=== PATIENT | male | born 1955 | race Caucasian/White ===

== ENCOUNTER 2018-09-12 16:21 | Observation (INO) ==
[2018-09-12] MEDS ORDERED: Aspirin 325 MG Tablet PO ONE (16:24)
--- NOTE | 2018-09-12 16:34 | ED ---
HPI General Chief Complaint: Chest Pain Stated Complaint: chest pain Time Seen by Provider: 09/12/18 16:23 Source: patient, family and RN notes reviewed Mode of arrival: ambulatory Limitations: no limitations History of Present Illness HPI narrative: 63-year-old male states approximately 30 minutes ago he developed chest pain and tingling to his left arm. He states he has history of bypass surgery. He states that he came straight here. He denies any weakness, slurred speech, change in mentation or other concurrent complaints at this time. He states he took his meclizine given he felt a little off and that helped him some with that feeling but the pain and tingling persisted so he came in. MD complaint: Reports chest pain STEMI Alert: No Onset (ago): minute(s) Duration: constant Onset: during rest Pain location: Reports substernal Severity: moderate Quality: Reports tightness Pain radiation: Reports none Relieving factors: nothing Exacerbating factors: nothing Related Data Home Medications Medication Instructions Recorded Confirmed glipizide 10 mg PO BID 08/29/18 09/12/18 metformin 1,000 mg PO BID 08/29/18 09/12/18 alprazolam [Xanax] 0.5 mg PO BID 09/12/18 09/12/18 clonidine HCl 0.1 mg PO BID 09/12/18 09/12/18 insulin NPH and regular human 1 sliding scale dose SUBCUT UD 09/12/18 09/12/18 [Novolin 70/30 U-100 Insulin] insulin aspart U-100 [Novolog 1 sliding scale dose SUBCUT UD 09/12/18 09/12/18 U-100 Insulin aspart] lisinopril-hydrochlorothiazide 1 tab PO DAILY 09/12/18 09/12/18 Previous Rx's Medication Instructions Recorded methocarbamol [Robaxin-] 750 mg PO Q8H #20 tab 08/29/18 gjnqdhvjqq-npxkostewomvg-hnqk 1 cap PO Q4H PRN #10 cap 09/04/18 [Fioricet] pantoprazole 40 mg PO DAILY #10 tab 09/04/18 Allergies Allergy/AdvReac Type Severity Reaction Status Date / Time gabapentin Allergy "My Verified 09/04/18 17:38 Breathing" Review of Systems ROS: all other systems reviewed are negative [facility] Medical History Medical History Diabetes (Acute) Hypertension (Acute) Surgical History Surgical History Hx of CABG (Acute) Social History Social History Substance History: No History of Abuse Second Hand Smoke Exposure: No Smoking Status: Former smoker How Often Do You Have a Drink Containing Alcohol: Never Recent Travel in [facility] within the Last 8 Weeks: No Recent Out of Country Travel within the Last 8 Weeks: No Exam Narrative Exam Narrative: GENERAL: 63 y/o male in no apparent distress SKIN: Focused skin assessment warm/dry. HEAD: Atraumatic. Normocephalic. EYES: Pupils equal and round. No scleral icterus. No injection or drainage. ENT: No nasal bleeding or discharge. NECK: Trachea midline. CARDIOVASCULAR: Regular rate and rhythm. RESPIRATORY: No accessory muscle use. Clear to auscultation. Breath sounds equal bilaterally. GASTROINTESTINAL: Abdomen soft, non-tender, nondistended. MUSCULOSKELETAL: No obvious deformities. No clubbing. No cyanosis. NEUROLOGICAL: Awake and alert. No obvious cranial nerve deficits. Motor grossly within normal limits. Normal speech. 5 out of 5 in all 4 extremities, equal grasp bilaterally, no pronator drift, no facial droop PSYCHIATRIC: Appropriate mood and affect; insight and judgment normal. Course Reevaluation(s) Reevaluation #1: patient updated and agrees to [facility] admit Initial Documented Vital Signs Pulse Rate 93 H 09/12/18 16:23 Respiratory Rate 20 09/12/18 16:23 Blood Pressure 205/96 H 09/12/18 16:23 Pulse Oximetry 98 09/12/18 16:23 Last Documented Vital Signs Pulse Rate 93 H 09/12/18 16:23 Respiratory Rate 20 09/12/18 16:23 Blood Pressure 205/96 H 09/12/18 16:23 Pulse Oximetry 98 09/12/18 16:23 Medical Decision Making MDM Narrative Medical decision making narrative: We will check blood work, chest x-ray and dose with aspirin nitroglycerin and reevaluate Medical Screen Exam Complete: Yes Emergency Medical Condition: Yes Differential Diagnosis Differential Diagnosis: MD, gastritis, anxiety, musculoskeletal Lab Data Result diagrams: 09/12/18 17:40 09/12/18 17:40 Lab Results 09/12/18 09/12/18 09/12/18 Range/Units 16:32 17:40 17:40 WBC 5.5 (4.0-11.0) th/mm3 RBC 5.33 (4.50-5.90) mil/mm3 Hgb 15.8 (13.0-17.0) gm/dL Hct 46.7 (39.0-51.0) % MCV 87.6 (80.0-100.0) fL MCH 29.6 (27.0-34.0) pg MCHC 33.7 (32.0-36.0) % RDW 15.1 (11.6-17.2) % Plt Count 148 L (150-450) th/mm3 MPV 8.6 (7.0-11.0) fL Neut % (Auto) 64.1 (16.0-70.0) % Lymph % (Auto) 26.9 (9.0-44.0) % Haskell % (Auto) 6.2 (0.0-8.0) % Eos % (Auto) 2.2 (0.0-4.0) % Baso % (Auto) 0.6 (0.0-2.0) % Neut # (Auto) 3.5 (1.8-7.7) th/mm3 Lymph # (Auto) 1.5 (1.0-4.8) th/mm3 Haskell # (Auto) 0.3 (0.0-0.9) th/mm3 Eos # (Auto) 0.1 (0.0-0.4) th/mm3 Baso # (Auto) 0.0 (0.0-0.2) th/mm3 WBC Differential . Differential Comment Auto diff final PT 10.5 (9.8-11.6) sec INR 1.0 Ratio APTT 25.1 (23.4-31.7) sec Sodium (136-145) meq/L Potassium (3.5-5.1) meq/L Chloride (98-107) meq/L Carbon Dioxide (21.0-32.0) meq/L Anion Gap (5-15) meq/L BUN (7-18) mg/dL Creatinine (0.60-1.30) mg/dL Estimated GFR (>89) mL/min POC Glucose 323 H (68-110) mg/dl Random Glucose (74-106) mg/dL Calcium (8.5-10.1) mg/dL Magnesium (1.5-2.5) mg/dL Total Bilirubin (0.2-1.0) mg/dL AST (15-37) U/L ALT (12-78) U/L Alkaline Phosphatase (45-117) U/L Total Creatine Kinase (39-308) U/L Troponin I (0.02-0.05) ng/mL Total Protein (6.4-8.2) g/dL Albumin (3.4-5.0) g/dL Serum Alcohol (0-5) mg/dL 09/12/18 Range/Units 17:40 WBC (4.0-11.0) th/mm3 RBC (4.50-5.90) mil/mm3 Hgb (13.0-17.0) gm/dL Hct (39.0-51.0) % MCV (80.0-100.0) fL MCH (27.0-34.0) pg MCHC (32.0-36.0) % RDW (11.6-17.2) % Plt Count (150-450) th/mm3 MPV (7.0-11.0) fL Neut % (Auto) (16.0-70.0) % Lymph % (Auto) (9.0-44.0) % Haskell % (Auto) (0.0-8.0) % Eos % (Auto) (0.0-4.0) % Baso % (Auto) (0.0-2.0) % Neut # (Auto) (1.8-7.7) th/mm3 Lymph # (Auto) (1.0-4.8) th/mm3 Haskell # (Auto) (0.0-0.9) th/mm3 Eos # (Auto) (0.0-0.4) th/mm3 Baso # (Auto) (0.0-0.2) th/mm3 WBC Differential Differential Comment PT (9.8-11.6) sec INR Ratio APTT (23.4-31.7) sec Sodium 134 L (136-145) meq/L Potassium 5.1 (3.5-5.1) meq/L Chloride 104 (98-107) meq/L Carbon Dioxide 20.4 L (21.0-32.0) meq/L Anion Gap 10 (5-15) meq/L BUN 21 H (7-18) mg/dL Creatinine 1.30 (0.60-1.30) mg/dL Estimated GFR 56 L (>89) mL/min POC Glucose (68-110) mg/dl Random Glucose 326 H (74-106) mg/dL Calcium 8.4 L (8.5-10.1) mg/dL Magnesium 1.6 (1.5-2.5) mg/dL Total Bilirubin 0.2 (0.2-1.0) mg/dL AST 30 (15-37) U/L ALT 62 (12-78) U/L Alkaline Phosphatase 113 (45-117) U/L Total Creatine Kinase 53 (39-308) U/L Troponin I Less than 0.02 L (0.02-0.05) ng/mL Total Protein 8.0 (6.4-8.2) g/dL Albumin 3.9 (3.4-5.0) g/dL Serum Alcohol Less than 3 (0-5) mg/dL Imaging Data Radiologist's impression: Chest X-Ray 09/12/18 16:23 CONCLUSION: 1. No acute cardiopulmonary disease. Head CT 09/12/18 17:55 CONCLUSION: 1. No acute intracranial abnormality. . Discharge Plan Discharge Disposition Patient Disposition: ED Admit(ED Internal Use Only) Discharge Order Discharge Orders: ED Use Only Admit Order (Routine); Ordered 09/12/18 Ordered By: Mere Villar Discharge Details Diagnosis: Chest pain Physicians Team ED Provider: Mere Villar Primary Care Provider: Primary Care AlexisiSelene Rxs /Orders / Referrals /Forms Prescriptions: No Action glipizide 10 mg PO BID RF: 0 metformin 1,000 mg PO BID RF: 0 methocarbamol [Robaxin-750] 750 mg tablet 750 mg PO Q8H Qty: 20 RF: 0 pantoprazole 40 mg tablet,delayed release (DR/EC) 40 mg PO DAILY Qty: 10 RF: 0 zjimiouaeg-wqouqqpjyptvy-byuk [Fioricet] 50-300-40 mg capsule 1 cap PO Q4H PRN (Reason: pain) Qty: 10 RF: 0 clonidine HCl 0.1 mg Tablet 0.1 mg PO BID RF: 0 lisinopril-hydrochlorothiazide 20-12.5 mg Tablet 1 tab PO DAILY RF: 0 insulin NPH and regular human [Novolin 70/30 U-100 Insulin] 100 unit/mL (70-30 ) Suspension 1 sliding scale dose SUBCUT UD RF: 0 alprazolam [Xanax] 0.5 mg Tablet 0.5 mg PO BID RF: 0 insulin aspart U-100 [Novolog U-100 Insulin aspart] 100 unit/mL Solution 1 sliding scale dose SUBCUT UD RF: 0 Discharge Instructions Patient Printed Instructions: Chest Pain (ED) Status ED Status: Admitted Observation Patient
--- NOTE | 2018-09-12 17:14 | XR ---
EXAM DATE: 09/12/2018 5:12 PM EST AGE/SEX: 63 years / Male INDICATIONS: Chest pain CLINICAL DATA: This is the patient's initial encounter. Patient reports that signs and symptoms have been present for 1 day and indicates a pain score of 3/10. MEDICAL/SURGICAL HISTORY: . Diabetes. Hypertension. CABG. COMPARISON: No prior exams available for comparison. FINDINGS: A single AP view of the chest demonstrates the lungs to be symmetrically aerated without evidence of mass, infiltrate or effusion. Median sternotomy wires in place. The cardiomediastinal contours are u nremarkable. Osseous structures are intact. CONCLUSION: 1. No acute cardiopulmonary disease. Electronically signed by: Juanito Brown MD Board Certified Radiologist 09/12/2018 5:12 PM MIGUEL ANGEL T
[2018-09-12] MEDS ORDERED: ALPRAZolam 0.5 MG Tablet PO ONE (17:27)
[2018-09-12 17:52] LABS: Baso % (Auto) 0.6 % (0.0-2.0); Eos # (Auto) 0.1 th/mm3 (0.0-0.4); Eos % (Auto) 2.2 % (0.0-4.0); Hematocrit 46.7 % (39.0-51.0); Hemoglobin 15.8 gm/dL (13.0-17.0); Lymph # (Auto) 1.5 th/mm3 (1.0-4.8); Lymph % (Auto) 26.9 % (9.0-44.0); Mean Corpuscular HGB Conc 33.7 % (32.0-36.0); Mean Corpuscular Hemoglobin 29.6 pg (27.0-34.0); Mean Corpuscular Volume 87.6 fL (80.0-100.0); Mean Platelet Volume 8.6 fL (7.0-11.0); Mono # (Auto) 0.3 th/mm3 (0.0-0.9); Mono % (Auto) 6.2 % (0.0-8.0); Neut # (Auto) 3.5 th/mm3 (1.8-7.7); Neut % (Auto) 64.1 % (16.0-70.0); Platelet Count 148 th/mm3 (150-450); Red Blood Count 5.33 mil/mm3 (4.50-5.90); Red Cell Distribution Width 15.1 % (11.6-17.2); White Blood Count 5.5 th/mm3 (4.0-11.0)
[2018-09-12 18:07] LABS: Alanine Aminotransferase 62 U/L (12-78); Albumin 3.9 g/dL (3.4-5.0); Anion Gap 10 meq/L (5-15); Aspartate Aminotransferase 30 U/L (15-37); Blood Urea Nitrogen 21 mg/dL (7-18); Calcium 8.4 mg/dL (8.5-10.1); Carbon Dioxide 20.4 meq/L (21.0-32.0); Chloride 104 meq/L (98-107); Glomerular Filtration Rate 56 mL/min (>89); Glucose,Random 326 mg/dL (74-106); Magnesium 1.6 mg/dL (1.5-2.5); Potassium 5.1 meq/L (3.5-5.1); Sodium 134 meq/L (136-145)
[2018-09-12 18:11] LABS: Alkaline Phosphatase 113 U/L (45-117)
[2018-09-12 18:17] LABS: Activated Partial Thrombo Time 25.1 sec (23.4-31.7); Prothrombin Time 10.5 sec (9.8-11.6)
[2018-09-12 18:21] LABS: Creatine Kinase 53 U/L (39-308)
--- NOTE | 2018-09-12 18:50 | CT ---
EXAM DATE: 09/12/2018 6:42 PM EST AGE/SEX: 63 years / Male INDICATIONS: Headaches, left arm numbness and tingling CLINICAL DATA: This is the patient's initial encounter. Patient reports that signs and symptoms have been present for 1 day and indicates a pain score of 0/10. MEDICAL/SURGICAL HISTORY: Diabetes. Hypertension. CABG. RADIATION DOSE: 56.35 CTDI (mGy) COMPARISON: No prior exams available for comparison. TECHNIQUE: CT of the head without contrast. Using automated exposure control and adjustment of the mA and/or kV according to patient size, radiation dose was kept as low as reasonably achievable to ob tain optimal diagnostic quality images. DICOM format image data is available electronically for revi ew and comparison. FINDINGS: Cerebrum: The ventricles are normal for age. Mild periventricular white matter hypodensities. No cristina dence of midline shift, mass lesion, hemorrhage or acute infarction. No extraaxial fluid collections are seen. Posterior Fossa: The cerebellum and brainstem are intact. The 4th ventricle is midline. The cerebe llopontine angle is unremarkable. Extracranial: The visualized portion of the orbits is intact. Skull: The calvaria is intact. No evidence of skull fracture. CONCLUSION: 1. No acute intracranial abnormality. . Electronically signed by: Juanito Brown MD Board Certified Radiologist 09/12/2018 6:49 PM MIGUEL ANGEL Barth
[2018-09-12 21:10] LABS: Creatine Kinase 45 U/L (39-308)
[2018-09-12 23:09] LABS: Creatine Kinase 42 U/L (39-308)
[2018-09-13] MEDS: Acetaminophen 500 MG Tablet PO PRN ×2 (05:14→10:52)
--- NOTE | 2018-09-13 08:20 | P.HPCA ---
History of Present Illness Primary Care Physician: No Primary Care Physician Chief Complaint: Chest pain History of Present Illness: 63 year old male with history of CABG, diabetes, and hypertension presents emergency room for further evaluation of chest pain. Onset yesterday afternoon. Location left anterior chest. Characterized a dull, nagging pain with intermittent sharp pains. No radiation. Associated symptoms included left arm and left foot and ankle area numb and tingly. Duration lasted hours. No weakness of the left extremity, facial droop, or slurred speech. No associated symptoms of dyspnea, vomiting, or diaphoresis. Endorses intermittent nausea. Reports similar pain since having CABG last year. No precipitating or relieving factors, denies discomfort being exertional. No recent illness, fever, chills, or injury. Recently moved to [facility] this month and has not established with a local primary care provider or store person. Past cardiac testing CABG x3 last year [facility] Social history Known coronary artery disease, diabetes, and hypertension. Reports taking 2 cholesterol medications. Denies smoking, alcohol or recreational drug use. - Diagnosis (1) Atypical chest pain (2) Type II diabetes mellitus (3) CAD (coronary artery disease) (4) Hypertension Review of Systems All other systems reviewed negative except as stated in HPI PMFSH - History History Provided By: Patient - Medical History Medical History: Medical History (Last Updated 09/13/18 @ 11:04 by GEORGE Trinidad) Anxiety Coronary artery disease Hyperlipidemia Diabetes Hypertension - Surgical History Surgical History: Surgical History (Last Updated 09/13/18 @ 11:04 by GEORGE Trinidad) Hx of CABG Onset Date: Unknown - Tobacco History Second Hand Smoke Exposure: No Tobacco Use In Past 30 Days: No Smoking Status: Former smoker - Alcohol History How Often Do You Have a Drink Containing Alcohol: Never - Substance Use History Substance History: No History of Abuse - Travel History Recent Travel in the [place] Within the Last 8 Weeks: No Recent Travel Out of the Country Within the Last 8 Weeks: No - Immunization History Tetanus Immunization: Unsure Medications and Allergies Active Medications: Active Medications Acetaminophen (Tylenol) 500 mg PO Q4H PRN PRN Reason: HEADACHE Last Admin: 09/13/18 05:14 Dose: 500 mg Ondansetron HCl (Zofran Inj) 4 mg IV.PUSH Q6H PRN PRN Reason: NERVOUSNESS Sodium Chloride (Ns Flush) 2 ml IV.FLUSH BID KING Last Admin: 09/13/18 04:08 Dose: Not Given Sodium Chloride (Ns Flush) 2 ml IV.FLUSH PRN PRN PRN Reason: FLUSH AFTER USING IV ACCESS Allergies Allergy/AdvReac Type Severity Reaction Status Date / Time gabapentin Allergy "My Verified 09/04/18 17:38 Breathing" Home Medications Medication Instructions Recorded Confirmed Type glipizide 10 mg PO BID 08/29/18 09/12/18 History metformin 1,000 mg PO BID 08/29/18 09/12/18 History alprazolam [Xanax] 0.5 mg PO BID 09/12/18 09/12/18 History clonidine HCl 0.1 mg PO BID 09/12/18 09/12/18 History insulin NPH and regular human 1 sliding scale dose SUBCUT UD 09/12/18 09/12/18 History [Novolin 70/30 U-100 Insulin] insulin aspart U-100 [Novolog 1 sliding scale dose SUBCUT 09/12/18 09/12/18 History U-100 Insulin aspart] lisinopril-hydrochlorothiazide 1 tab PO DAILY 09/12/18 09/12/18 History atenolol 50 mg PO DAILY 09/13/18 09/13/18 History Exam Vital signs: Vital Signs 09/12/18 16:23 09/12/18 21:08 09/13/18 05:16 Pulse Rate 93 H 96 H 93 H Respiratory Rate 20 16 Blood Pressure 205/96 H 145/84 H 137/78 Pulse Oximetry 98 97 98 Intake & Output 09/12/18 09/13/18 09/13/18 18:59 06:59 18:59 Intake Total 0 / 0 Balance 0 / 0 Weight 68 kg Intake: Oral 0 / 0 Other: Date of Last Bowel Movement 09/12/18 Weight On Admission 68 kg Narrative: GENERAL: Alert WN, WD, NAD, male who appears older than stated age HEAD: NC, AT NECK: Supple, no masses, trachea midline CV: RRR, without murmur, rub, gallop, no JVD, S1-S2 RESP: Clear lungs throughout bilateral, no crackles, wheeze, rhonchi, symmetrical chest rise, nonlabored, able to speak in full sentences ABD: Soft, NT, ND, no masses, positive bowel tones EXT: Pulses +2x4, no dependent edema MS: Normal tone x4 extremities, no obvious deformities, full range of motion NEURO: motor strength 5/5 PSYCH: A+O x3, pleasant affect, appropriate speech, mood, insight and judgment SKIN: Normal turgor, normal texture, no lesions, no rashes Results 09/12/18 17:40 09/12/18 17:40 Cardiac Enzymes 09/12/18 09/12/18 09/12/18 Range/Units 17:40 19:30 22:35 AST 30 (15-37) U/L Troponin I Less than 0.02 L Less than 0.02 L Less than 0.02 L (0.02-0.05) ng/mL Coagulation 09/12/18 Range/Units 17:40 PT 10.5 (9.8-11.6) sec APTT 25.1 (23.4-31.7) sec CBC 09/12/18 Range/Units 17:40 WBC 5.5 (4.0-11.0) th/mm3 RBC 5.33 (4.50-5.90) mil/mm3 Hgb 15.8 (13.0-17.0) gm/dL Hct 46.7 (39.0-51.0) % Plt Count 148 L (150-450) th/mm3 Neut # (Auto) 3.5 (1.8-7.7) th/mm3 Lymph # (Auto) 1.5 (1.0-4.8) th/mm3 Harmon # (Auto) 0.3 (0.0-0.9) th/mm3 Eos # (Auto) 0.1 (0.0-0.4) th/mm3 Baso # (Auto) 0.0 (0.0-0.2) th/mm3 Comprehensive Metabolic Panel 09/12/18 Range/Units 17:40 Sodium 134 L (136-145) meq/L Potassium 5.1 (3.5-5.1) meq/L Chloride 104 (98-107) meq/L Carbon Dioxide 20.4 L (21.0-32.0) meq/L BUN 21 H (7-18) mg/dL Creatinine 1.30 (0.60-1.30) mg/dL Calcium 8.4 L (8.5-10.1) mg/dL AST 30 (15-37) U/L ALT 62 (12-78) U/L Alkaline Phosphatase 113 (45-117) U/L Total Protein 8.0 (6.4-8.2) g/dL Albumin 3.9 (3.4-5.0) g/dL Intake and Output 09/12/18 09/13/18 09/13/18 22:59 06:59 14:59 Intake Total 0 / 0 Balance 0 / 0 Intake: Oral 0 / 0 Other: Date of Last Bowel Movement 09/12/18 Weight 68 kg Weight On Admission 68 kg - Imaging and Cardiology Imaging: Impressions Chest X-Ray 09/12/18 16:23 CONCLUSION: 1. No acute cardiopulmonary disease. Head CT 09/12/18 17:55 CONCLUSION: 1. No acute intracranial abnormality. . EKG interpretations - EKG EKG results cardiology: sinus rhythm, normal axis, normal QRS, normal ST/T Caprini VTE Risk Assessment Caprini VTE Risk Assessment: Moderate/High Risk (score >= 2) Caprini Risk Assessment Model: Point Value = 1 Point Value = 2 Point Value = 3 Point Value = 5 Age 41-60 Minor surgery BMI > 25 kg/m2 Swollen legs Varicose veins or History of unexplained or recurrent spontaneous Oral contraceptives or hormone replacement Sepsis (< 1 month) Serious lung disease, including pneumonia (< 1 month) Abnormal pulmonary function Acute myocardial infarction Congestive heart failure (< 1 month) History of inflammatory bowel disease Medical patient at bed rest Age 61-74 Arthroscopic surgery Major open surgery (> 45 min) Laparoscopic surgery (> 45 min) Malignancy Confined to bed (> 72 hours) Immobilizing plaster cast Central venous access Age >= 75 History of VTE Family history of VTE Factor V Leiden Prothrombin [id number] Lupus anticoagulant Anticardiolipin antibodies Elevated serum homocysteine Heparin-induced thrombocytopenia Other congenital or acquired thrombophilia Stroke (< 1 month) Elective arthroplasty Hip, pelvis, or leg fracture Acute spinal cord injury (< 1 month) Prophylaxis Regimen: Total Risk Factor Score Risk Level Prophylaxis Regimen 0-1 Low Early ambulation 2 Moderate Order ONE of the following: *Sequential Compression Device (SCD) *Heparin 5000 units SQ BID 3-4 Higher Order ONE of the following medications: *Heparin 5000 units SQ TID *Enoxaparin/Lovenox 40 mg SQ daily (WT < 150 kg, CrCl > 30 mL/min) *Enoxaparin/Lovenox 30 mg SQ daily (WT < 150 kg, CrCl > 10-29 mL/min) *Enoxaparin/Lovenox 30 mg SQ BID (WT < 150 kg, CrCl > 30 mL/min) AND/OR *Sequential Compression Device (SCD) 5 or more Highest Order ONE of the following medications: *Heparin 5000 units SQ TID (Preferred with Epidurals) *Enoxaparin/Lovenox 40 mg SQ daily (WT < 150 kg, CrCl > 30 mL/min) *Enoxaparin/Lovenox 30 mg SQ daily (WT < 150 kg, CrCl > 10-29 mL/min) *Enoxaparin/Lovenox 30 mg SQ BID (WT < 150 kg, CrCl > 30 mL/min) AND *Sequential Compression Device (SCD) Assessment and Plan - Assessment (1) Atypical chest pain Code(s): R07.89 - Other chest pain Status: Acute Plan: Admitted chest pain center. Monitor on telemetry overnight. ACS ruled out 3 sets of EKGs and cardiac enzymes. Seen and evaluated by Dr. Placido Fernandez. Proceed with Lexiscan this a.m. If unremarkable, plans are to discharge home with follow-up with primary care provider and store person. Instructed to establish with local PCP and store person. Agreeable to plan of care and verbalized understanding. 1045-Received call from Nuclear imaging department patient refusing Lexiscan. Once patient returning to room attempted to determine cause of refusing testing. States he is claustrophobic. Offered anti-anxiety medication. Refused. Angry and raising his voice stating "nothing is being done and I am hungry." Requesting to sign out AMA despite efforts made to encourage further cardiac testing. Made aware to return to ER for any further chest pain or concerns. Discussed with RN. (2) Type II diabetes mellitus Code(s): E11.9 - Type 2 diabetes mellitus without complications Status: Chronic Plan: SSI coverage. (3) CAD (coronary artery disease) Code(s): I25.10 - Atherosclerotic heart disease of [place] coronary artery without angina pectoris Status: Chronic Plan: Instructed to establish with p local store person. Continue home cardiac medications once updated in electronic medical record. (4) Hypertension Code(s): I10 - Essential (primary) hypertension Status: Chronic Plan: Continue lisinopril/hydrochlorothiazide. Continue to monitor. H&P: Quality - VTE Deep Vein Thrombosis/Pulmonary Embolism Present on Admission: No (2) Type II diabetes mellitus Qualifiers: Diabetes mellitus mcfp insulin use: unspecified mcfp insulin use status (3) CAD (coronary artery disease) Qualifiers: Coronary Disease-Associated Artery/Lesion type: unspecified vessel or lesion type [place] vs. transplanted heart: [place] heart Associated angina: angina presence unspecified Qualified Code(s): I25.10 - Atherosclerotic heart disease of [place] coronary artery without angina pectoris (4) Hypertension Qualifiers: Hypertension type: unspecified Qualified Code(s): I10 - Essential (primary) hypertension
--- NOTE | 2018-09-13 08:46 | ECG ---
Date Performed: 09/12/2018 Time Performed: 22:39:53 PTAGE: 63 years EKG: Sinus rhythm NORMAL ECG PREVIOUS TRACING : 09/12/2018 19.33 Since previous tracing, no significant change noted DOCTOR: Placido Fernandez Interpretating Date/Time 09/13/2018 08:45:17
--- NOTE | 2018-09-13 08:47 | ECG ---
Date Performed: 09/12/2018 Time Performed: 16:27:09 PTAGE: 63 years EKG: Sinus rhythm NORMAL ECG INTERPRETATION BASED ON A DEFAULT AGE OF 40 YEARS PREVIOUS TRACING : 08/29/2018 17.09 Since previous tracing, no significant change noted DOCTOR: Placido Fernandez Interpretating Date/Time 09/13/2018 08:46:45
--- NOTE | 2018-09-13 08:47 | ECG ---
Date Performed: 09/12/2018 Time Performed: 19:33:06 PTAGE: 63 years EKG: Sinus rhythm NORMAL ECG PREVIOUS TRACING : 09/12/2018 16.27 Since previous tracing, no significant change noted DOCTOR: Placido Fernandez Interpretating Date/Time 09/13/2018 08:46:16
[2018-09-13 09:58] VITALS: BP 125/90; PULSE 115; RESP 22; TEMP 97.4; O2SAT 97
== END 2018-09-13 11:04 | disposition left against medical advice (07) ==
LOC: NEPC 16:21 → NEDA 16:21 → NEDH 23:38 → NEPFCDU 09-13 02:44
CPT/HCPCS: 70450; 71010; 71045; 76937; 80053; 80307; 82550; 82948; 82962; 83735; 84484; 85025; 85610; 85730; 93005; 96372; 96374; 99285; G0378; J1815; J2405